=== PATIENT | female | born 1955 | race Caucasian/White ===

== ENCOUNTER → 2020-10-11 | Outpatient (CLI) | payer BC | LOC: KOH-I 13:23 | DX: Z87.442 Personal history of urinary calculi (principal); R10.9 Unspecified abdominal pain; M54.5 Low back pain; K56.41 Fecal impaction; M51.36 Other intervertebral disc degeneration, lumbar region | CPT/HCPCS: 72100; 74018 ==

== ENCOUNTER → 2021-01-17 | Outpatient (CLI) | payer BC ==
[2021-01-17 11:03] LABS: HEMOGLOBIN 15.3 gm/dl (12.3-15.3); RED BLOOD COUNT 4.39 M/UL (4.00-5.10); WHITE BLOOD COUNT 4.7 K/UL (4.5-11.0)
[2021-01-18 07:11] LABS: VITAMIN D, 25-HYDROXY 30.1 ng/mL (30.0-100.0)
[2021-01-18 09:16] LABS: CREATININE, URINE 33.5 mg/dL (Not Estab.); MICROALB/CREAT RATIO <9 (0-29)
== END ==
LOC: LAB 09:56
PROVIDERS: Nurse Practitioner Family
DX: Z00.00 Encounter for general adult medical examination without abnormal findings (principal); I10 Essential (primary) hypertension; M25.50 Pain in unspecified joint; J30.9 Allergic rhinitis, unspecified; L93.0 Discoid lupus erythematosus; E87.6 Hypokalemia; R73.9 Hyperglycemia, unspecified; R51.9 Headache, unspecified; Z13.220 Encounter for screening for lipoid disorders; E53.8 Deficiency of other specified B group vitamins; E55.9 Vitamin D deficiency, unspecified; R31.9 Hematuria, unspecified
CPT/HCPCS: 36415; 80053; 80061; 81001; 82043; 82570; 82607; 83036; 84439; 84443; 85025; 85652; 86140; 86141

== ENCOUNTER → 2021-02-28 | Outpatient (CLI) | payer BC, MEDICARE | LOC: KOH-I 02-25 11:30 | DX: F17.200 Nicotine dependence, unspecified, uncomplicated (principal) | CPT/HCPCS: 71271 ==

== ENCOUNTER → 2021-04-18 | Day surgery (SDC) | payer BC, MEDICARE ==
[~2021-04-18] MED LIST: ALLERGY RELIEF5 MG PO; AMITRIPTYLINE150 MG PO; BENLYSTA 120 M120 MG IM; BUMETANIDE2 MG PO; BUTALB-ACETAMI1 EAC1 PO; BYSTOLIC10 MG PO; ESTRACE2 MG PO; FOLIC ACID 1 MG1 MG PO; KLOR-CON M2020 MEQ PO; PLAQUENIL200 MG PO; SINGULAIR10 MG PO; TOPAMAX 100 MG100 MG PO
== END | disposition home or self-care (01) ==
LOC: OR 08:10
DX: Z12.11 Encounter for screening for malignant neoplasm of colon (principal); I10 Essential (primary) hypertension; E11.9 Type 2 diabetes mellitus without complications; E53.8 Deficiency of other specified B group vitamins; E55.9 Vitamin D deficiency, unspecified; G43.909 Migraine, unspecified, not intractable, without status migrainosus; G47.00 Insomnia, unspecified; J30.9 Allergic rhinitis, unspecified; M19.90 Unspecified osteoarthritis, unspecified site; L93.0 Discoid lupus erythematosus; E87.6 Hypokalemia; M81.0 Age-related osteoporosis without current pathological fracture; E66.9 Obesity, unspecified; Z68.25 Body mass index [BMI] 25.0-25.9, adult; Z79.899 Other long term (current) drug therapy; Z88.2 Allergy status to sulfonamides; Z88.1 Allergy status to other antibiotic agents; Z20.822 Contact with and (suspected) exposure to COVID-19; Z86.010 Personal history of colon polyps; Z87.440 Personal history of urinary (tract) infections; Z90.710 Acquired absence of both cervix and uterus; Z90.49 Acquired absence of other specified parts of digestive tract
CPT/HCPCS: J2001; J2704; J7030

== ENCOUNTER → 2021-04-25 | Outpatient (CLI) | payer BC, MEDICARE | LOC: LAB 11:52 | PROVIDERS: Nurse Practitioner Family | DX: I10 Essential (primary) hypertension (principal); E87.6 Hypokalemia; R73.9 Hyperglycemia, unspecified; M25.50 Pain in unspecified joint | CPT/HCPCS: 36415; 80048; 85652 ==

== ENCOUNTER → 2021-10-03 | Outpatient (CLI) | payer BC, MEDICARE ==
[2021-10-03 11:54] LABS: HEMOGLOBIN 15.2 gm/dl (12.3-15.3); RED BLOOD COUNT 4.42 M/UL (4.00-5.10); WHITE BLOOD COUNT 6.3 K/UL (4.5-11.0)
[2021-10-04 08:14] LABS: VITAMIN D, 25-HYDROXY 44.7 ng/mL (30.0-100.0)
[2021-10-04 09:13] LABS: MICROALB/CREAT RATIO <6 (0-29); SARS-COV-2 SPIKE AB INTERP Positive (.)
[2021-10-06 23:11] LABS: IMMUNOGLOBULIN G, QN, SERUM 870 mg/dL (586-1602)
[2021-10-07 14:56] LABS: SARS-COV-2 SEMI-QUANT TOTAL AB See Dilution U/mL (Negative<0.8)
== END ==
LOC: LAB 11:29
PROVIDERS: Nurse Practitioner Family
DX: E11.65 Type 2 diabetes mellitus with hyperglycemia (principal); J01.00 Acute maxillary sinusitis, unspecified; I10 Essential (primary) hypertension; M25.50 Pain in unspecified joint; L93.0 Discoid lupus erythematosus; K59.00 Constipation, unspecified; R60.9 Edema, unspecified; G47.00 Insomnia, unspecified; E53.8 Deficiency of other specified B group vitamins; R53.83 Other fatigue; N20.0 Calculus of kidney
CPT/HCPCS: 36415; 80053; 80061; 81001; 82043; 82570; 82607; 82784; 82787; 83036; 84439; 84443; 85025; 85652; 86140